=== PATIENT | male | born 1995 | race Caucasian/White ===

== ENCOUNTER 2017-11-08 03:00 | Emergency (ER) | payer OTHER ==
[~2017-11-08] VITALS: Ht 172.7 cm; Wt 67.1 kg
[~2017-11-08 03:00] MED LIST: ARIPIPRAZOLE5 MG PO; BASAGLAR K100 UNIT/1 SC; BUPROPION XL300 MG PO; CYCLOBENZAPRINE10 MG PO; LEVEMIR100 UNIT/2 SC; NICORELIEF2 MG BC; NOVOLOG PE100 UNITS/ SC; TRAMADOL HCL50 MG PO; WELLBUTRIN XL150 MG PO
[2017-11-08 03:31] LABS: HEMATOCRIT 47.6 % (38.0-50.0); MCH 31.5 PG (29.0-34.0); MCHC 35.3 G/DL (30.0-36.0); MCV 89.1 FL (86-99); MEAN PLAT.VOLUME 9.3 uM^3 (9.0-12.4); PLATELET COUNT 234 K/uL (156-360); RBC DIS.WIDTH-SD 39.5 % (39-53); RED BLOOD COUNT 5.34 M/uL (4.00-5.50); WHITE BLOOD COUNT 21.1 K/uL (4.1-10.2)
[2017-11-08 03:42] LABS: CHLORIDE 105 mEq/L (99-109); POTASSIUM 3.4 mEq/L (3.7-5.4); SODIUM 140 mEq/L (136-147)
[2017-11-08 03:44] LABS: GLUCOSE 242 mg/dL (70-99)
[2017-11-08 03:45] LABS: ANION GAP 13 MEQ/L (2-14)
[2017-11-08 03:47] LABS: SERUM ETHYL ALCOHOL 111 mg/dL
[2017-11-08 03:48] LABS: GFR ESTIMATE (CALCULATED) > 59 mL/min/ (58.99-99999)
[2017-11-08 03:50] LABS: UREA NITROGEN (BUN) 14 mg/dL (9-23)
[2017-11-08 03:51] LABS: SALICYLATE < 5.0 MG/DL (15-30)
[2017-11-08 05:22] LABS: AMPHETAMINE NEGATIVE (500 ng/mL); BARBITURATES NEGATIVE (200 ng/mL); BENZODIAZEPINES NEGATIVE (150 ng/mL); COCAINE NEGATIVE (150 ng/mL); INTERNAL CONTROLS VALID? YES; METHADONE NEGATIVE (200 ng/mL); METHAMPHETAMINE NEGATIVE (500 ng/mL); OPIATES (MORPHINE) NEGATIVE (100 ng/mL); OXYCODONE NEGATIVE (100 ng/mL); PHENCYCLIDINE NEGATIVE (25 ng/mL); PROPOXYPHENE NEGATIVE (300 ng/mL); THC CANNABINOIDS NEGATIVE (50 ng/mL); TRICYCLIC ANTIDEPRESSANTS NEGATIVE (300 ng/mL)
[2017-11-08 12:23] LABS: HEMATOCRIT 43.8 % (38.0-50.0); MCHC 34.7 G/DL (30.0-36.0); MCV 89.2 FL (86-99); MEAN PLAT.VOLUME 9.4 uM^3 (9.0-12.4); PLATELET COUNT 218 K/uL (156-360); RBC DIS.WIDTH-CV 12.2 % (11.8-14.6); RBC DIS.WIDTH-SD 40.3 % (39-53); RED BLOOD COUNT 4.91 M/uL (4.00-5.50); WHITE BLOOD COUNT 17.2 K/uL (4.1-10.2)
[2017-11-08 12:35] LABS: POINT-OF-CARE METER ID UU14100415
[2017-11-08 12:42] LABS: ADD MIUA? NO; BILIRUBIN NEGATIVE; BLOOD NEGATIVE; COLOR YELLOW ((YELLOW)); GLUCOSE (STRIP) >=500; KETONES 5; LEUKOCYTES NEGATIVE; NITRITE NEGATIVE; PROTEIN (STRIP) NEGATIVE; SPECIFIC GRAVITY 1.011 (1.000-1.030); UCUL ADDED? NO; UROBILINOGEN 0.2 MG/DL (0.2-1.0)
[2017-11-08 17:04] VITALS: BP 121/75
== END 2017-11-08 17:13 | disposition home or self-care (01) ==
LOC: EME 03:00
PROVIDERS: Emergency Medicine
DX: F33.1 Major depressive disorder, recurrent, moderate (principal); T43.592A Poisoning by other antipsychotics and neuroleptics, intentional self-harm, initial encounter; R45.851 Suicidal ideations; E11.9 Type 2 diabetes mellitus without complications; R56.9 Unspecified convulsions; F17.200 Nicotine dependence, unspecified, uncomplicated; F10.129 Alcohol abuse with intoxication, unspecified; Y90.5 Blood alcohol level of 100-119 mg/100 ml
CPT/HCPCS: 71010; 80048; 81003; 82948; 85027; 90839; 93005; 99281; 99285; G0480; J2405; J7030